=== PATIENT | female | born 1990 | race Caucasian/White ===

== ENCOUNTER 2020-06-29 14:33 | Emergency (ER) | payer MEDICAID ==
[~2020-06-29 14:33] MED LIST: NONE PER PT
--- NOTE | 2020-06-29 14:51 | NUR ---
Pt not in lobby
--- NOTE | 2020-06-29 15:07 | NUR ---
NO ANSWER X 2
--- NOTE | 2020-06-29 15:23 | NUR ---
NO ANSWER X 3, PT HAS ELOPED FROM LOBBY
== END 2020-06-29 15:25 | disposition left against medical advice (07) ==
LOC: ED 15:14
DX: R10.9 Unspecified abdominal pain (principal); Z53.21 Procedure and treatment not carried out due to patient leaving prior to being seen by health care provider

== ENCOUNTER → 2021-02-04 | Outpatient (CLI) | payer MEDICAID | END | disposition home or self-care (01) | LOC: RAD 10:06 | PROVIDERS: ATTEND Internal Medicine Gastroenterology | DX: K21.9 Gastro-esophageal reflux disease without esophagitis (principal); R11.2 Nausea with vomiting, unspecified | CPT/HCPCS: 78264; A9541 ==